=== PATIENT | male | born 1955 | race Caucasian/White ===

== ENCOUNTER 2021-07-15 09:51 | Emergency (ER) | payer MEDICARE, OTHER ==
[2021-07-15 10:41] LABS: PTT,PARTIAL THROMBOPLSTIN TIME 23.7 SEC (23.2-32.3)
[2021-07-15 10:56] LABS: CHLORIDE,CL 97 mEq/L (98-106); SODIUM,NA 136 mEq/L (136-145)
--- NOTE | 2021-07-15 11:27 | EDM.PDOC ---
<Franco Schumacher - Last Filed: 07/15/21 11:35> ED HPI GENERAL MEDICAL PROBLEM - General Chief Complaint: Upper Extremity Injury/Pain Stated Complaint: ARM PAIN DURING LEXISCAN Time Seen by Provider: 07/15/21 10:30 Source of Information: Reports: Patient History Limitations: Reports: No Limitations - History of Present Illness INITIAL COMMENTS - FREE TEXT/NARRATIVE: This is a 65-year-old male patient that presents to the emergency department after having a Lexiscan completed. Patient developed bilateral forearm pain during Lexiscan. Denies dizziness, chest pain, shortness of breath, diaphoresis, nausea, or vomiting. Patient is alert and oriented GCS is 15. Patient states during the scan after receiving the medication he began having a severe cramping type pain and to both forearms. Patient states that he able to move his extremities and the pain has been improving some since the scan. Patient stated that he was receiving the scan due to increased dyspnea at times. He reports that he is on a diuretic to assist with getting fluid out of his lower extremities. States that he was sent here to be evaluated due to the arm pain concerns. Onset: Today Duration: Minutes: (30 minutes) Location: Reports: Upper Extremity, Left, Upper Extremity, Right Quality: Reports: Other (cramping) Severity: Mild Improves with: Reports: None Worsens with: Reports: None Associated Symptoms: Reports: No Other Symptoms - Related Data Allergies Allergy/AdvReac Type Severity Reaction Status Date / Time No Known Allergies Allergy Verified 07/15/21 11:21 Home Meds: Home Meds ALPRAZolam [Xanax XR] 1 mg PO BID 09/27/20 [History] Fludrocortisone [Florinef] 0.1 mg PO DAILY 09/27/20 [History] Hydrocortisone [Cortef] 10 mg PO DAILY 09/27/20 [History] Metoprolol Succinate [Toprol XL 50mg] 50 mg PO BID 09/27/20 [History] Rosuvastatin Calcium 20 mg PO DAILY 09/27/20 [History] lisinopriL [Lisinopril] 20 mg PO DAILY 09/27/20 [History] Aspirin [Halfprin] 81 mg PO DAILY 07/15/21 [History] Cholecalciferol (Vitamin D3) [Vitamin D3] 2,000 unit PO DAILY 07/15/21 [History] Esomeprazole Magnesium [Nexium] 40 mg PO DAILY 07/15/21 [History] Furosemide 40 mg PO DAILY 07/15/21 [History] Magnesium Oxide [Magnesium] 500 mg PO DAILY 07/15/21 [History] Past Medical History Musculoskeletal History: Reports: Arthritis Endocrine/Metabolic History: Reports: Other (See Below) Other Endocrine/Metabolic History: adrenalectomy - Past Surgical History Musculoskeletal Surgical History: Reports: Arthroscopic Knee, Hip Replacement ED ROS GENERAL - Review of Systems Review Of Systems: See Below Constitutional: Reports: No Symptoms. Denies: Fever, Chills, Malaise, Weakness HEENT: Reports: No Symptoms Respiratory: Denies: Shortness of Breath, Wheezing, Pleuritic Chest Pain, Cough Cardiovascular: Reports: Dyspnea on Exertion. Denies: Chest Pain, Edema, Palpitations, Syncope GI/Abdominal: Denies: Abdominal Pain, Black Stool, Bloody Stool, Constipation, Diarrhea, Nausea, Vomiting : Reports: No Symptoms Musculoskeletal: Reports: Arm Pain ([place] forearm pain) Skin: Reports: No Symptoms Neurological: Denies: Confusion, Dizziness, Headache, Numbness, Paresthesia Psychiatric: Reports: No Symptoms. Denies: Anxiety, Confusion Hematologic/Lymphatic: Reports: No Symptoms Immunologic: Reports: No Symptoms ED EXAM, GENERAL - Physical Exam Exam: See Below Exam Limited By: No Limitations General Appearance: Alert, WD/WN, No Apparent Distress Eye Exam: Bilateral Eye: Normal Inspection Ears: Normal External Exam, Hearing Grossly Normal Nose: Normal Inspection, No Blood Throat/Mouth: Normal Lips, Normal Voice, No Airway Compromise Head: Atraumatic, Normocephalic Neck: Normal Inspection, Supple, Non-Tender Respiratory/Chest: No Respiratory Distress, Lungs Clear, Normal Breath Sounds. No: Crackles, Rales, Rhonchi, Wheezing Cardiovascular: Normal Peripheral Pulses, Regular Rate, Rhythm, No Gallop, No JVD, No Murmur, No Rub GI/Abdominal: Normal Bowel Sounds, Soft, Non-Tender, No Distention (Male) Exam: No Hernia, Deferred Rectal (Males) Exam: Deferred Back Exam: Normal Inspection Extremities: Arm Pain (bilteral forearms) Neurological: Alert, Oriented, CN II-XII Intact, Normal Cognition, No Motor/Sensory Deficits Psychiatric: Normal Affect, Normal Mood Skin Exam: Warm, Dry, Intact, Normal Color Lymphatic: No Adenopathy #1 Interpretation EKG Date: 07/15/21 Time: 10:32 Rhythm: NSR [place]: Normal P-Wave: Present QRS: Normal ST-T: Normal QT: Normal Comparison: NA - No Prior EKG EKG Interpretation Comments: NSR without acute ST changes Course - Re-Assessments/Exams Free Text/Narrative Re-Assessment/Exam: This is a 65-year-old male patient that presented to the emergency department with bilateral arm pain during a Lexiscan. Due to these findings they sent him to the ED and he was evaluated for cardiac symptoms. A CMP, CK, troponin, and magnesium level were drawn and completed with no acute findings. We also completed a 12-lead EKG which shows a normal sinus rhythm without acute ST changes. During the course of the ER visit patient's pain subsided to both arms. Plan will be to discharge home and he can follow-up with his primary care provider for his Lexiscan results. If he continues to have pain he may use Tylenol for discomfort. He can also call or return with any questions or concerns. Departure - Departure Time of Disposition: 11:28 Disposition: Home, Self-Care 01 Condition: Good Clinical Impression: Arm pain Qualifiers: Laterality: bilateral Qualified Code(s): M79.601 - Pain in right arm - Discharge Information *PRESCRIPTION DRUG MONITORING PROGRAM REVIEWED*: Not Applicable *COPY OF PRESCRIPTION DRUG MONITORING REPORT IN PATIENT EMELIA: Not Applicable Forms: ED Department Discharge Additional Instructions: 1. No emergent cardiac problem identified with today's labwork and EKG. 2. Follow-up with PCP for results of your Lexiscan. 3. Arm pain may be a result from the medication that you received during your procedure and should likely decrease with time. 4. May take Tylenol as needed for continued discomfort. 5. Call or return with any questions. <Leanna Eddy Luther - Last Filed: 07/16/21 13:06> ED HPI GENERAL MEDICAL PROBLEM Bilateral Lower Arm Pain Score (Numeric/FACES): 4 Course - Vital Signs Last Recorded V/S: Last Vital Signs Temp 98 F 07/15/21 11:30 Pulse 75 07/15/21 11:30 Resp 18 07/15/21 11:30 BP 175/92 H 07/15/21 11:30 Pulse Ox 96 07/15/21 11:30 - Orders/Labs/Meds Labs: Laboratory Tests 07/15/21 07/15/21 07/15/21 Range/Units 10:28 10:28 10:28 WBC 6.0 (4.0-11.0) 10^3/uL RBC 4.88 (4.50-6.00) x10^6/uL Hgb 12.7 L (14.0-18.0) g/dL Hct 40.4 L (42.0-52.0) % MCV 82.8 L (83.0-97.0) fL MCH 26.0 L (27.0-32.0) pg MCHC 31.4 L (32.0-36.0) g/dL RDW Coeff of Kelli 14.7 (11.0-15.0) % Plt Count 154 (150-400) 10^3/uL Immature Gran % (Auto) 0.2 (0.0-4.9) % Neut % (Auto) 67.7 (41-71) % Lymph % (Auto) 19.5 L (24-44) % [place] % (Auto) 9.0 (0-10) % Eos % (Auto) 2.8 (0-6) % Baso % (Auto) 0.8 (0-1) % Neut # (Auto) 4.06 (1.80-8.00) x10^3/uL Lymph # (Auto) 1.17 (0.60-5.00) 10^3/uL [place] # (Auto) 0.54 (0.00-1.50) 10^3/uL Eos # (Auto) 0.17 (0.00-1.50) 10^3/uL Baso # (Auto) 0.05 (0.00-0.50) 10^3/uL Immature Gran # (Auto) 0.01 (0.00-0.49) 10^3/uL PT 11.8 (9.7-12.3) SEC INR 1.09 (0.92-1.18) APTT 23.7 (23.2-32.3) SEC Sodium 136 (136-145) mEq/L Potassium 3.8 (3.5-5.0) mEq/L Chloride 97 L (98-106) mEq/L Carbon Dioxide 31 (21-32) mmol/L BUN 11 (7-18) mg/dL Creatinine 1.4 H (0.7-1.3) mg/dL Est Cr Clr Drug Dosing TNP Estimated GFR (MDRD) 51 L (>=60) mL/min Glucose 93 (75-99) mg/dL Calcium 8.8 (8.4-10.1) mg/dL Magnesium 2.0 (1.8-2.4) mg/dL Total Bilirubin 0.6 (0.0-1.0) mg/dL AST 23 (15-37) U/L ALT 29 (12-78) U/L Alkaline Phosphatase 80 (46-116) U/L Lactate Dehydrogenase 182 (100-190) U/L Creatine Kinase 86 (35-232) U/L Troponin I High Sens 21.9 (<=76) pg/mL Total Protein 6.7 (6.4-8.2) g/dL Albumin 3.5 (3.4-5.0) g/dL Lipase 66 L (73-393) U/L - Assessment/Plan Plan: I have personally examined pt and reviewed plan of care and am in agreement with it.
== END 2021-07-15 11:35 | disposition home or self-care (01) ==
LOC: CC.ED 09:51
DX: M79.601 Pain in right arm (principal); Z79.899 Other long term (current) drug therapy
CPT/HCPCS: 36415; 71046; 80053; 82550; 83615; 83690; 83735; 84484; 85025; 85610; 85730; 93005; 99284-25

== ENCOUNTER 2021-07-19 07:39 | Inpatient (IN) | payer MEDICARE, OTHER ==
[2021-07-19] MEDS ORDERED: Ketorolac 30 MG/ML SDV IVPUSH ONE (08:03)
[2021-07-19] MEDS ORDERED: Iopamidol 755 Mg/ML 100 ML Bottle IVPUSH ONE (09:29)
--- NOTE | 2021-07-19 12:06 | EDM.PDOC ---
ED HPI GENERAL MEDICAL PROBLEM - General Chief Complaint: General Stated Complaint: L Flank Pain Time Seen by Provider: 07/19/21 08:15 Source of Information: Reports: Patient History Limitations: Reports: No Limitations - History of Present Illness INITIAL COMMENTS - FREE TEXT/NARRATIVE: Kael is a 65 yo male who presents to the ED with c/o left sided mid back/flank pain. He reports he was coughing throughout the night and pain seemed to worsen. Does admit pain worsens with breathing. Is chronically short of breath, worse on exertion. Recently was seen for cough and SOB. At that time ProBNP was elevated to 2811. Patient was started on 40 mg lasix daily. He does report his swelling has greatly improved and he feels he has been breathing easier up until the last few days. Reports the last few days he has been coughing more and again feels short of breath. Denies any fever, chills, N/V/D, urinary symptoms. He did just have normal lexiscan. Echo is pending at this time. Onset: Today Duration: Constant Location: Reports: Back (left mid back) Quality: Reports: Ache, Sharp Worsens with: Reports: Breathing, Movement Associated Symptoms: Reports: Cough, Shortness of Breath. Denies: Confusion, Chest Pain, cough w sputum, Diaphoresis, Fever/Chills, Headaches, Loss of Appetite, Malaise, Nausea/Vomiting, Rash, Seizure, Syncope, Weakness - Related Data Allergies Allergy/AdvReac Type Severity Reaction Status Date / Time No Known Allergies Allergy Verified 07/19/21 08:11 Home Meds: Home Meds ALPRAZolam [Xanax XR] 1 mg PO BID 09/27/20 [History] Fludrocortisone [Florinef] 0.1 mg PO DAILY 09/27/20 [History] Hydrocortisone [Cortef] 10 mg PO DAILY 09/27/20 [History] Metoprolol Succinate [Toprol XL 50mg] 50 mg PO BID 09/27/20 [History] Rosuvastatin Calcium 20 mg PO DAILY 09/27/20 [History] lisinopriL [Lisinopril] 20 mg PO DAILY 09/27/20 [History] Aspirin [Halfprin] 81 mg PO DAILY 07/15/21 [History] Cholecalciferol (Vitamin D3) [Vitamin D3] 2,000 unit PO DAILY 07/15/21 [History] Esomeprazole Magnesium [Nexium] 40 mg PO DAILY 07/15/21 [History] Furosemide 40 mg PO DAILY 07/15/21 [History] Magnesium Oxide [Magnesium] 500 mg PO DAILY 07/15/21 [History] Past Medical History Cardiovascular History: Reports: Heart Failure, Hypertension, SOB on Exertion Musculoskeletal History: Reports: Arthritis Endocrine/Metabolic History: Reports: Other (See Below) Other Endocrine/Metabolic History: adrenalectomy - Past Surgical History GI Surgical History: Reports: Other (See Below) Other GI Surgeries/Procedures: adrenal gland removal Musculoskeletal Surgical History: Reports: Arthroscopic Knee, Hip Replacement Social & Family History - Family History Family Medical History: No Pertinent Family History - Tobacco Use Tobacco Use Status *Q: Never Tobacco User Second Hand Smoke Exposure: No - Caffeine Use Caffeine Use: Reports: None - Recreational Drug Use Recreational Drug Use: No ED ROS GENERAL - Review of Systems Review Of Systems: Comprehensive ROS is negative, except as noted in HPI. ED EXAM, GENERAL - Physical Exam Exam: See Below Exam Limited By: No Limitations General Appearance: Alert, WD/WN, No Apparent Distress Eye Exam: Bilateral Eye: EOMI, Normal Fundi, Normal Inspection, PERRL Nose: Normal Inspection, Normal Mucosa, No Blood Throat/Mouth: Normal Inspection, Normal Lips, Normal Teeth, Normal Gums, Normal Oropharynx, Normal Voice, No Airway Compromise Head: Atraumatic, Normocephalic Neck: Normal Inspection, Supple, Non-Tender, Full Range of Motion Respiratory/Chest: No Respiratory Distress, No Accessory Muscle Use, Decreased Breath Sounds, Rhonchi (LLL) Cardiovascular: Normal Peripheral Pulses, Regular Rate, Rhythm, No Edema, No Gallop, No JVD, No Murmur, No Rub GI/Abdominal: Normal Bowel Sounds, Soft, Non-Tender, No Organomegaly, No Distention, No Abnormal Bruit, No Mass Back Exam: Other (tenderness to left flank area) Extremities: Normal Capillary Refill, Pedal Edema (1+) Neurological: Alert, Oriented, CN II-XII Intact, Normal Cognition, Normal Gait, Normal Reflexes, No Motor/Sensory Deficits Psychiatric: Normal Affect, Normal Mood Skin Exam: Warm, Dry, Intact, Normal Color, No Rash Lymphatic: No Adenopathy Course - Vital Signs Last Recorded V/S: Last Vital Signs Temp 96.9 F 07/19/21 12:19 Pulse 75 07/19/21 12:19 Resp 20 07/19/21 12:19 BP 137/66 07/19/21 12:19 Pulse Ox 94 L 07/19/21 12:19 - Orders/Labs/Meds Orders: Active Orders 24 hr Category Date Time Status CTA Chest W WO Contrast [Ang Chest] [CT] Stat Exams 07/19/21 09:22 Taken Chest 1V Frontal [CR] Stat Exams 07/19/21 08:03 Taken Medication Orders Acetaminophen (Acetaminophen 325 Mg Tab) 650 mg PO Q4H PRN PRN Reason: Pain (Mild 1-3)/fever Hydrocodone Bitart/Acetaminophen (Acetaminophen/Hydrocodone 325-5 Mg Tab) 1 tab PO Q4H PRN PRN Reason: Pain (moderate 4-6) Albuterol/Ipratropium (Albuterol/Ipratropium 3.0-0.5 Mg/3 Ml Neb Soln) 3 ml NEB QID [facility] Last Admin: 07/19/21 16:09 Dose: 3 ml Documented by: ALANNA Alprazolam (Alprazolam 0.25 Mg Tab) 1 mg PO TID PRN PRN Reason: Anxiety Aspirin (Aspirin 81 Mg Tab.Ec) 81 mg PO DAILY [facility] Atorvastatin Calcium (Atorvastatin 20 Mg Tab) 40 mg PO BEDTIME [facility] Ceftriaxone Sodium (Ceftriaxone 1 Gm Vial) 1 gm IVPUSH Q24H [facility] Last Admin: 07/19/21 16:09 Dose: 1 gm Documented by: ALANNA Cholecalciferol (Cholecalciferol (Vitamin D3) 25 Mcg Tab) 50 mcg PO DAILY [facility] Docusate Sodium (Docusate Sodium 100 Mg Cap) 100 mg PO BID PRN PRN Reason: Constipation Enoxaparin Sodium (Enoxaparin 40 Mg/0.4 Ml Syringe) 40 mg SUBCUT Q24H [facility] Fludrocortisone Acetate (Fludrocortisone 0.1 Mg Tab) 0.1 mg PO DAILY [facility] Furosemide (Furosemide 40 Mg Tab) 40 mg PO DAILY [facility] Hydrocortisone (Hydrocortisone 20 Mg Tab) 10 mg PO DAILY [facility] Azithromycin 500 mg/ Sodium (Chloride) 250 mls @ 250 mls/hr IV Q24H [facility] Last Admin: 07/19/21 16:09 Dose: 250 mls/hr Documented by: ALANNA Lisinopril (Lisinopril 20 Mg Tab) 20 mg PO DAILY [facility] Magnesium Oxide (Magnesium Oxide 250 Mg Tab) 500 mg PO DAILY [facility] Methylprednisolone Sodium Succinate (Methylprednisolone Sodium Succinate 125 Mg/2 Ml Sdv) 62.5 mg IVPUSH BID [facility] Metoprolol Succinate (Metoprolol Succinate 100 Mg Tab.Er) 50 mg PO BID [facility] Morphine Sulfate (Morphine 2 Mg/Ml Syringe) 2 mg IVPUSH Q4H PRN PRN Reason: Pain (severe 7-10) Pantoprazole Sodium (Pantoprazole 40 Mg Tab.Cr) 40 mg PO ACBREAKFAST [facility] Polyethylene Glycol (Polyethylene Glycol 3350 Powder 17 Gm Packet) 17 gm PO DAILY PRN PRN Reason: Constipation Sodium Chloride (Sodium Chloride 0.9% 10 Ml Syringe) 10 ml FLUSH ASDIRECTED PRN PRN Reason: Keep Vein Open Temazepam (Temazepam 15 Mg Cap) 15 mg PO BEDTIME PRN PRN Reason: Sleep Labs: Laboratory Tests 07/19/21 07/19/21 07/19/21 Range/Units 08:04 08:15 08:15 WBC 12.1 H (4.0-11.0) 10^3/uL RBC 4.41 L (4.50-6.00) x10^6/uL Hgb 11.5 L (14.0-18.0) g/dL Hct 36.3 L (42.0-52.0) % MCV 82.3 L (83.0-97.0) fL MCH 26.1 L (27.0-32.0) pg MCHC 31.7 L (32.0-36.0) g/dL RDW Coeff of Kelli 14.6 (11.0-15.0) % Plt Count 168 (150-400) 10^3/uL Immature Gran % (Auto) 1.1 (0.0-4.9) % Neut % (Auto) 84.0 H (41-71) % Lymph % (Auto) 7.8 L (24-44) % [place] % (Auto) 5.3 (0-10) % Eos % (Auto) 1.3 (0-6) % Baso % (Auto) 0.5 (0-1) % Neut # (Auto) 10.19 H (1.80-8.00) x10^3/uL Lymph # (Auto) 0.95 (0.60-5.00) 10^3/uL [place] # (Auto) 0.64 (0.00-1.50) 10^3/uL Eos # (Auto) 0.16 (0.00-1.50) 10^3/uL Baso # (Auto) 0.06 (0.00-0.50) 10^3/uL Immature Gran # (Auto) 0.13 (0.00-0.49) 10^3/uL D-Dimer, Quantitative (0.00-0.50) Sodium 132 L (136-145) mEq/L Potassium 3.4 L (3.5-5.0) mEq/L Chloride 89 L (98-106) mEq/L Carbon Dioxide 34 H (21-32) mmol/L BUN 17 D (7-18) mg/dL Creatinine 1.6 H (0.7-1.3) mg/dL Est Cr Clr Drug Dosing 40.43 mL/min Estimated GFR (MDRD) 43 L (>=60) mL/min Glucose 97 (75-99) mg/dL Calcium 8.2 L (8.4-10.1) mg/dL Magnesium 1.8 (1.8-2.4) mg/dL Total Bilirubin 0.9 (0.0-1.0) mg/dL AST 21 (15-37) U/L ALT 22 (12-78) U/L Alkaline Phosphatase 69 (46-116) U/L Troponin I High Sens 33.5 (<=76) pg/mL NT-Pro-B Natriuret Pep 1144 H (0-1000) pg/mL Total Protein 6.4 (6.4-8.2) g/dL Albumin 3.0 L (3.4-5.0) g/dL Urine Color Light yellow (YELLOW) Urine Appearance Clear (CLEAR) Urine pH 7.0 (4.5-8.0) Ur Specific [place] 1.015 (1.003-1.020) Urine Protein Negative (NEGATIVE) mg/dL Urine Glucose (UA) Negative (NEGATIVE) mg/dL Urine Ketones Negative (NEGATIVE) mg/dL Urine Occult Blood Negative (NEGATIVE) Urine Nitrite Negative (NEGATIVE) Urine Bilirubin Negative (NEGATIVE) Urine Urobilinogen 0.2 (0.2-1.0) EU/dL Ur Leukocyte Esterase Negative (NEGATIVE) SARS CoV-2 RNA Rapid ROBERT (NEGATIVE) 07/19/21 07/19/21 Range/Units 08:35 09:05 WBC (4.0-11.0) 10^3/uL RBC (4.50-6.00) x10^6/uL Hgb (14.0-18.0) g/dL Hct (42.0-52.0) % MCV (83.0-97.0) fL MCH (27.0-32.0) pg MCHC (32.0-36.0) g/dL RDW Coeff of Kelli (11.0-15.0) % Plt Count (150-400) 10^3/uL Immature Gran % (Auto) (0.0-4.9) % Neut % (Auto) (41-71) % Lymph % (Auto) (24-44) % [place] % (Auto) (0-10) % Eos % (Auto) (0-6) % Baso % (Auto) (0-1) % Neut # (Auto) (1.80-8.00) x10^3/uL Lymph # (Auto) (0.60-5.00) 10^3/uL [place] # (Auto) (0.00-1.50) 10^3/uL Eos # (Auto) (0.00-1.50) 10^3/uL Baso # (Auto) (0.00-0.50) 10^3/uL Immature Gran # (Auto) (0.00-0.49) 10^3/uL D-Dimer, Quantitative 2.34 H (0.00-0.50) Sodium (136-145) mEq/L Potassium (3.5-5.0) mEq/L Chloride (98-106) mEq/L Carbon Dioxide (21-32) mmol/L BUN (7-18) mg/dL Creatinine (0.7-1.3) mg/dL Est Cr Clr Drug Dosing mL/min Estimated GFR (MDRD) (>=60) mL/min Glucose (75-99) mg/dL Calcium (8.4-10.1) mg/dL Magnesium (1.8-2.4) mg/dL Total Bilirubin (0.0-1.0) mg/dL AST (15-37) U/L ALT (12-78) U/L Alkaline Phosphatase (46-116) U/L Troponin I High Sens (<=76) pg/mL NT-Pro-B Natriuret Pep (0-1000) pg/mL Total Protein (6.4-8.2) g/dL Albumin (3.4-5.0) g/dL Urine Color (YELLOW) Urine Appearance (CLEAR) Urine pH (4.5-8.0) Ur Specific [place] (1.003-1.020) Urine Protein (NEGATIVE) mg/dL Urine Glucose (UA) (NEGATIVE) mg/dL Urine Ketones (NEGATIVE) mg/dL Urine Occult Blood (NEGATIVE) Urine Nitrite (NEGATIVE) Urine Bilirubin (NEGATIVE) Urine Urobilinogen (0.2-1.0) EU/dL Ur Leukocyte Esterase (NEGATIVE) SARS CoV-2 RNA Rapid ROBERT Negative (NEGATIVE) Meds: Medications Generic Name Dose Route Start Last Admin Trade Name Freq PRN Reason Stop Dose Admin Acetaminophen 650 mg 07/19/21 12:19 Acetaminophen 325 Mg Tab PO Q4H PRN Pain (Mild 1-3)/fever Hydrocodone Bitart/Acetaminophen 1 tab 07/19/21 12:19 Acetaminophen/Hydrocodone 325-5 Mg Tab PO Q4H PRN Pain (moderate 4-6) Albuterol/Ipratropium 3 ml 07/19/21 16:00 07/19/21 16:09 Albuterol/Ipratropium 3.0-0.5 Mg/3 Ml Neb Soln NEB 3 ml QID [facility] Administration Alprazolam 1 mg 07/19/21 20:00 Alprazolam 0.25 Mg Tab PO TID PRN Anxiety Aspirin 81 mg 07/20/21 08:00 Aspirin 81 Mg Tab.Ec PO DAILY [facility] Atorvastatin Calcium 40 mg 07/20/21 20:00 Atorvastatin 20 Mg Tab PO BEDTIME [facility] Ceftriaxone Sodium 1 gm 07/19/21 16:00 07/19/21 16:09 Ceftriaxone 1 Gm Vial IVPUSH 1 gm Q24H [facility] Administration Cholecalciferol 50 mcg 07/20/21 08:00 Cholecalciferol (Vitamin D3) 25 Mcg Tab PO DAILY [facility] Docusate Sodium 100 mg 07/19/21 12:19 Docusate Sodium 100 Mg Cap PO BID PRN Constipation Enoxaparin Sodium 40 mg 07/20/21 08:00 Enoxaparin 40 Mg/0.4 Ml Syringe SUBCUT Q24H [facility] Fludrocortisone Acetate 0.1 mg 07/20/21 08:00 Fludrocortisone 0.1 Mg Tab PO DAILY [facility] Furosemide 40 mg 07/20/21 08:00 Furosemide 40 Mg Tab PO DAILY [facility] Hydrocortisone 10 mg 07/20/21 08:00 Hydrocortisone 20 Mg Tab PO DAILY [facility] Azithromycin 500 mg/ Sodium 250 mls @ 250 mls/hr 07/19/21 16:00 07/19/21 16:09 Chloride IV 250 mls/hr Q24H [facility] Administration Lisinopril 20 mg 07/20/21 08:00 Lisinopril 20 Mg Tab PO DAILY [facility] Magnesium Oxide 500 mg 07/20/21 08:00 Magnesium Oxide 250 Mg Tab PO DAILY [facility] Methylprednisolone Sodium Succinate 62.5 mg 07/19/21 20:00 Methylprednisolone Sodium Succinate 125 Mg/2 Ml Sdv IVPUSH BID [facility] Metoprolol Succinate 50 mg 07/19/21 20:00 Metoprolol Succinate 100 Mg Tab.Er PO BID [facility] Morphine Sulfate 2 mg 07/19/21 12:19 Morphine 2 Mg/Ml Syringe IVPUSH Q4H PRN Pain (severe 7-10) Pantoprazole Sodium 40 mg 07/20/21 07:00 Pantoprazole 40 Mg Tab.Cr PO ACBREAKFAST [facility] Polyethylene Glycol 17 gm 07/19/21 12:19 Polyethylene Glycol 3350 Powder 17 Gm Packet PO DAILY PRN Constipation Sodium Chloride 10 ml 07/19/21 12:19 Sodium Chloride 0.9% 10 Ml Syringe FLUSH ASDIRECTED PRN Keep Vein Open Temazepam 15 mg 07/19/21 12:19 Temazepam 15 Mg Cap PO BEDTIME PRN Sleep Discontinued Medications Generic Name Dose Route Start Last Admin Trade Name Freq PRN Reason Stop Dose Admin Iopamidol 100 ml 07/19/21 09:29 07/19/21 10:08 Iopamidol 755 Mg/Ml 100 Ml Bottle IVPUSH 07/19/21 09:30 100 ml ONETIME ONE Administration Ketorolac Tromethamine 30 mg 07/19/21 08:03 07/19/21 08:09 Ketorolac 30 Mg/Ml Sdv IVPUSH 07/19/21 08:04 30 mg ONETIME ONE Administration Oxycodone/Acetaminophen Confirm 07/19/21 12:52 07/19/21 13:28 Acetaminophen/Oxycodone 325-5 Mg Tab Administered 07/19/21 12:53 1 tab Dose Administration 1 tab .ROUTE .[facility] ONE - Re-Assessments/Exams Free Text/Narrative Re-Assessment/Exam: 07/19/21 12:00 Discussed labs, CXR, EKG and Chest CTA results with patient and . Negative for PE. Does have YEE and LLL pneumonia as well as multiple rib fractures in varying degrees of healing. Recommend admit. Patient agreeable. Departure - Departure Time of Disposition: 12:02 Disposition: Admitted As Inpatient 64 Condition: Fair Clinical Impression: Dade disease Left lower lobe pneumonia Qualifiers: Pneumonia type: due to other aerobic Gram-negative bacteria Qualified Code(s): J15.6 - Pneumonia due to other Gram-negative bacteria Rib fractures Qualifiers: Encounter type: initial encounter Fracture type: closed Laterality: bilateral Qualified Code(s): S22.43XA - Multiple fractures of ribs, bilateral, initial encounter for closed fracture Congestive heart failure Qualifiers: Heart failure type: unspecified Heart failure chronicity: acute on chronic Qualified Code(s): I50.9 - Heart failure, unspecified - Discharge Information *PRESCRIPTION DRUG MONITORING PROGRAM REVIEWED*: Not Applicable *COPY OF PRESCRIPTION DRUG MONITORING REPORT IN PATIENT EMELIA: Not Applicable Sepsis Event Note (ED) - Evaluation Sepsis Screening Result: No Definite Risk - Focused Exam Vital Signs: Vital Signs Temp Pulse Resp BP Pulse Ox 07/19/21 09:47 78 18 131/75 95 07/19/21 07:51 97.8 F 80 18 137/75 94 L - Problem List & Annotations (1) Left lower lobe pneumonia SNOMED Code(s): 761228697 Code(s): J18.9 - PNEUMONIA, UNSPECIFIED ORGANISM Status: Acute Current Visit: Yes Qualifiers: Pneumonia type: due to other aerobic Gram-negative bacteria Qualified Code(s): J15.6 - Pneumonia due to other Gram-negative bacteria (2) Congestive heart failure SNOMED Code(s): 39352441 Code(s): I50.9 - HEART FAILURE, UNSPECIFIED Status: Acute Current Visit: Yes Qualifiers: Heart failure type: unspecified Heart failure chronicity: acute on chronic Qualified Code(s): I50.9 - Heart failure, unspecified (3) Dade disease SNOMED Code(s): 165787656 Code(s): E27.1 - PRIMARY ADRENOCORTICAL INSUFFICIENCY Status: Acute Current Visit: Yes (4) Rib fractures SNOMED Code(s): 0877225 Code(s): S22.49XA - MULTIPLE FRACTURES OF RIBS, UNSP SIDE, INIT FOR CLOS FX Status: Acute Current Visit: Yes Qualifiers: Encounter type: initial encounter Fracture type: closed Laterality: bilateral Qualified Code(s): S22.43XA - Multiple fractures of ribs, bilateral, initial encounter for closed fracture (5) COPD (chronic obstructive pulmonary disease) SNOMED Code(s): 69061843 Code(s): J44.9 - CHRONIC OBSTRUCTIVE PULMONARY DISEASE, UNSPECIFIED Status: Acute Current Visit: Yes - Problem List Review Problem List Initiated/Reviewed/Updated: Yes - My Orders Last 24 Hours: My Active Orders 07/19/21 08:03 Chest 1V Frontal [CR] Stat 07/19/21 09:22 CTA Chest W WO Contrast [Ang Chest] [CT] Stat - Assessment/Plan Admission H&P: Please use this note as an admission H&P Last 24 Hours: My Active Orders 07/19/21 08:03 Chest 1V Frontal [CR] Stat 07/19/21 09:22 CTA Chest W WO Contrast [Ang Chest] [CT] Stat Assessment:: YEE and LLL Pneumonia CHF, 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 D Dimer elevated to 2.34. Opted to proceed with Chest CTA which does reveal YEE and LLL infiltrate as well as multiple bilateral rib fractures. Acute fractures noted to left 11th and 12th ribs, as likely source of patients pain. Pain meds ordered to be used as needed. ProBNP remains elevated at 1144, but this is much improved from last week. Continue lasix. Echo pending at this time. Na is low at 132. Will admit to acute with telemetry. Initiate IV antibiotics and nebs. Start stress dosed steroids. Repeat labs in am.
[2021-07-19] MEDS ORDERED: Polyethylene Glycol 3350 Powder 17 GM Packet PO PRN (12:19)
[2021-07-19] MEDS ORDERED: Acetaminophen 325 MG Tab PO PRN (12:19)
[2021-07-19] MEDS ORDERED: Temazepam 15 MG Cap PO PRN (12:19)
[2021-07-19] MEDS ORDERED: Morphine 2 MG/ML SYRINGE IVPUSH PRN (12:19)
[2021-07-19] MEDS ORDERED: Docusate Sodium 100 MG Cap PO PRN (12:19)
[2021-07-19] MEDS ORDERED: Sodium Chloride 0.9% 10 ML Syringe FLUSH PRN (12:19)
[2021-07-19] MEDS ORDERED: Acetaminophen/oxyCODONE 325-5 MG Tab ONE (12:52)
[2021-07-19] MEDS: Albuterol/Ipratropium 3.0-0.5 MG/3 ML Neb Soln NEB SCH ×2 (16:09→19:34)
[2021-07-19] MEDS: cefTRIAXone 1 GM Vial IVPUSH SCH (16:09)
[2021-07-19] MEDS: Azithromycin 500 MG in Sodium Chloride 0.9% 250 ML IV SCH (16:09)
[2021-07-19] MEDS: methylPREDNISolone Sodium Succinate 125 MG/2 ML SDV IVPUSH SCH (19:34)
[2021-07-19] MEDS: Metoprolol Succinate 100 MG Tab.ER PO SCH (19:39)
[2021-07-19] MEDS: Acetaminophen/HYDROcodone 325-5 MG Tab PO PRN (19:57)
[2021-07-19] MEDS ORDERED: ALPRAZolam 0.25 MG Tab PO PRN (20:00)
[2021-07-20] MEDS: Acetaminophen/HYDROcodone 325-5 MG Tab PO PRN ×3 (02:01→20:43)
[2021-07-20] MEDS: Pantoprazole 40 MG Tab.CR PO SCH (06:50)
[2021-07-20] MEDS: methylPREDNISolone Sodium Succinate 125 MG/2 ML SDV IVPUSH SCH ×2 (07:49→19:35)
[2021-07-20] MEDS: Albuterol/Ipratropium 3.0-0.5 MG/3 ML Neb Soln NEB SCH ×4 (07:49→19:35)
[2021-07-20] MEDS: Enoxaparin 40 MG/0.4 ML Syringe SUBCUT SCH (07:50)
[2021-07-20] MEDS: Hydrocortisone 20 MG Tab PO SCH (07:50)
[2021-07-20] MEDS: Fludrocortisone 0.1 MG Tab PO SCH (07:51)
[2021-07-20] MEDS: Aspirin 81 MG Tab.EC PO SCH (07:51)
[2021-07-20] MEDS: Metoprolol Succinate 100 MG Tab.ER PO SCH ×2 (07:52→19:36)
[2021-07-20] MEDS: Lisinopril 20 MG Tab PO SCH (07:56)
[2021-07-20] MEDS: Cholecalciferol (Vitamin D3) 25 MCG Tab PO SCH (07:56)
[2021-07-20] MEDS: Furosemide 40 MG Tab PO SCH (07:56)
[2021-07-20] MEDS: Isosorbide Mononitrate 30 MG Tab.ER PO SCH (10:38)
--- NOTE | 2021-07-20 12:03 | PN ---
DATE: 07/20/2021 S: Mr. Boogie is a patient of Barbara whom last week I saw I believe for a Lexiscan that was apparently negative. Nevertheless, he has had some worsening shortness of breath, saw Barbara, was put on Lasix for an elevated proBNP and he is feeling improved but he has been worsening with increased cough and shortness of breath. Ultimately, a CT was done which showed a left lower lobe pneumonia with some associated overlying rib fractures and the patient has no history of trauma and they felt this was related to his cough. He feels better, but he continues to have complaints of pain with any deep inspiration. O: On physical exam, he appears in no obvious distress, speaks in full sentences, is not wearing O2, his sats are 91% on room air. NECK: His neck veins do not appear distended. LUNGS: He has diminished breath sounds in the left lung redding, more so in the base. CARDIAC: Tones appear regular. ABDOMEN: Obese and soft. He has no peripheral edema. ASSESSMENT: 1. LEFT LOWER LOBE PNEUMONIA. 2. RIB FRACTURES. 3. HISTORY OF CONGESTIVE HEART FAILURE, STABLE. 4. ADRENAL INSUFFICIENCY SECONDARY TO ADRENAL GLAND REMOVAL. 5. HISTORY OF CHRONIC OBSTRUCTIVE PULMONARY DISEASE. P: Patient is on IV antibiotics, IV steroids, and clinically he is doing well. His blood pressure is elevated today, quite high. He does take lisinopril and Lasix. We will keep a close eye on this as up until this morning, his blood pressures were quite good, right now he is 166/79. Given his history of CHF and COPD, at this time, we will put him on a dose of Imdur and see how he does. KRISTINE/LISA /[id number]
[2021-07-20] MEDS: Azithromycin 500 MG in Sodium Chloride 0.9% 250 ML IV SCH (16:33)
[2021-07-20] MEDS: cefTRIAXone 1 GM Vial IVPUSH SCH (16:33)
[2021-07-20] MEDS ORDERED: atorvaSTATin 20 MG Tab PO SCH (20:00)
[2021-07-21] MEDS: Pantoprazole 40 MG Tab.CR PO SCH (06:14)
[2021-07-21] MEDS: Albuterol/Ipratropium 3.0-0.5 MG/3 ML Neb Soln NEB SCH ×2 (07:49→11:31)
[2021-07-21] MEDS: Enoxaparin 40 MG/0.4 ML Syringe SUBCUT SCH (07:50)
[2021-07-21] MEDS: Hydrocortisone 20 MG Tab PO SCH (07:51)
[2021-07-21] MEDS: Metoprolol Succinate 100 MG Tab.ER PO SCH (07:51)
[2021-07-21] MEDS: Furosemide 40 MG Tab PO SCH (07:52)
[2021-07-21] MEDS: Cholecalciferol (Vitamin D3) 25 MCG Tab PO SCH (07:52)
[2021-07-21] MEDS: Isosorbide Mononitrate 30 MG Tab.ER PO SCH (07:53)
[2021-07-21] MEDS: Lisinopril 20 MG Tab PO SCH (07:53)
[2021-07-21] MEDS: Fludrocortisone 0.1 MG Tab PO SCH (07:53)
[2021-07-21] MEDS: Aspirin 81 MG Tab.EC PO SCH (07:54)
[2021-07-21] MEDS: methylPREDNISolone Sodium Succinate 125 MG/2 ML SDV IVPUSH SCH (07:55)
--- NOTE | 2021-07-21 08:43 | PCM.PN ---
- General Info Date of Service: 07/21/21 Admission Dx/Problem (Free Text): LLL Pneumonia Overlying rib fractures History of COPD HTN Subjective Update: Patient sitting up at edge of bed after neb treatment. States is feeling better. Admits to less cough. Productive this am. Is still dyspneic with exertion. Is using the incentive spirometer multiple times per day, up to 1999. Afebrile. Pain is less in his left chest wall. Oxygen sats 97% on room air. Blood pressure still high this am 171/83. Appetite is good. Functional Status: Reports: Pain Controlled, Tolerating Diet, Ambulating - Review of Systems General: Reports: Weakness, Fatigue, Malaise. Denies: Fever, Chills HEENT: Denies: Sinus Congestion, Sore Throat, Rhinitis Pulmonary: Reports: Shortness of Breath, Pleuritic Chest Pain, Cough Cardiovascular: Reports: Edema. Denies: Chest Pain Gastrointestinal: Denies: Abdominal Pain, Diarrhea, Nausea, Vomiting Genitourinary: Reports: No Symptoms Musculoskeletal: Reports: Back Pain Skin: Reports: No Symptoms Neurological: Reports: No Symptoms - Patient Data Vitals - Most Recent: Last Vital Signs Temp 98 F 07/21/21 07:46 Pulse 87 07/21/21 07:51 Resp 18 07/21/21 07:46 BP 171/83 H 07/21/21 07:53 Pulse Ox 97 07/21/21 07:46 Weight - Most Recent: 216 lb Lab Results Last 24 Hours: Laboratory Results - last 24 hr 07/21/21 07/21/21 Range/Units 08:04 08:04 WBC 15.3 H (4.0-11.0) 10^3/uL RBC 4.41 L (4.50-6.00) x10^6/uL Hgb 11.5 L (14.0-18.0) g/dL Hct 36.7 L (42.0-52.0) % MCV 83.2 (83.0-97.0) fL MCH 26.1 L (27.0-32.0) pg MCHC 31.3 L (32.0-36.0) g/dL RDW Coeff of Kelli 14.6 (11.0-15.0) % Plt Count 256 (150-400) 10^3/uL Add Manual Diff Yes Sodium 135 L (136-145) mEq/L Potassium 4.6 (3.5-5.0) mEq/L Chloride 95 L (98-106) mEq/L Carbon Dioxide 34 H (21-32) mmol/L BUN 16 (7-18) mg/dL Creatinine 1.5 H (0.7-1.3) mg/dL Est Cr Clr Drug Dosing 43.12 mL/min Estimated GFR (MDRD) 47 L (>=60) mL/min Glucose 138 H (75-99) mg/dL Calcium 9.3 (8.4-10.1) mg/dL C-Reactive Protein 8.8 H (0.2-0.8) mg/dL Med Orders - Current: Current Medications Acetaminophen (Acetaminophen 325 Mg Tab) 650 mg PO Q4H PRN PRN Reason: Pain (Mild 1-3)/fever Hydrocodone Bitart/Acetaminophen (Acetaminophen/Hydrocodone 325-5 Mg Tab) 1 tab PO Q4H PRN PRN Reason: Pain (moderate 4-6) Last Admin: 07/20/21 20:43 Dose: 1 tab Documented by: Albuterol/Ipratropium (Albuterol/Ipratropium 3.0-0.5 Mg/3 Ml Neb Soln) 3 ml NEB QID [facility] Last Admin: 07/21/21 07:49 Dose: 3 ml Documented by: Alprazolam (Alprazolam 0.25 Mg Tab) 1 mg PO TID PRN PRN Reason: Anxiety Aspirin (Aspirin 81 Mg Tab.Ec) 81 mg PO DAILY [facility] Last Admin: 07/21/21 07:54 Dose: 81 mg Documented by: Atorvastatin Calcium (Atorvastatin 20 Mg Tab) 40 mg PO BEDTIME [facility] Last Admin: 07/20/21 19:35 Dose: 40 mg Documented by: Ceftriaxone Sodium (Ceftriaxone 1 Gm Vial) 1 gm IVPUSH Q24H [facility] Last Admin: 07/20/21 16:33 Dose: 1 gm Documented by: Cholecalciferol (Cholecalciferol (Vitamin D3) 25 Mcg Tab) 50 mcg PO DAILY [facility] Last Admin: 07/21/21 07:52 Dose: 50 mcg Documented by: Docusate Sodium (Docusate Sodium 100 Mg Cap) 100 mg PO BID PRN PRN Reason: Constipation Enoxaparin Sodium (Enoxaparin 40 Mg/0.4 Ml Syringe) 40 mg SUBCUT Q24H [facility] Last Admin: 07/21/21 07:50 Dose: 40 mg Documented by: Fludrocortisone Acetate (Fludrocortisone 0.1 Mg Tab) 0.1 mg PO DAILY [facility] Last Admin: 07/21/21 07:53 Dose: 0.1 mg Documented by: Furosemide (Furosemide 40 Mg Tab) 40 mg PO DAILY [facility] Last Admin: 07/21/21 07:52 Dose: 40 mg Documented by: Hydrocortisone (Hydrocortisone 20 Mg Tab) 10 mg PO DAILY [facility] Last Admin: 07/21/21 07:51 Dose: 10 mg Documented by: Azithromycin 500 mg/ Sodium (Chloride) 250 mls @ 250 mls/hr IV Q24H [facility] Last Admin: 07/20/21 16:33 Dose: 250 mls/hr Documented by: Isosorbide Mononitrate (Isosorbide Mononitrate 30 Mg Tab.Er) 30 mg PO DAILY [facility] Last Admin: 07/21/21 07:53 Dose: 30 mg Documented by: Lisinopril (Lisinopril 20 Mg Tab) 20 mg PO DAILY [facility] Last Admin: 07/21/21 07:53 Dose: 20 mg Documented by: Magnesium Oxide (Magnesium Oxide 250 Mg Tab) 500 mg PO DAILY [facility] Last Admin: 07/21/21 07:54 Dose: 500 mg Documented by: Methylprednisolone Sodium Succinate (Methylprednisolone Sodium Succinate 125 Mg/2 Ml Sdv) 62.5 mg IVPUSH BID [facility] Last Admin: 07/21/21 07:55 Dose: 62.5 mg Documented by: Metoprolol Succinate (Metoprolol Succinate 100 Mg Tab.Er) 50 mg PO BID [facility] Last Admin: 07/21/21 07:51 Dose: 50 mg Documented by: Morphine Sulfate (Morphine 2 Mg/Ml Syringe) 2 mg IVPUSH Q4H PRN PRN Reason: Pain (severe 7-10) Pantoprazole Sodium (Pantoprazole 40 Mg Tab.Cr) 40 mg PO ACBREAKFAST [facility] Last Admin: 07/21/21 06:14 Dose: 40 mg Documented by: Polyethylene Glycol (Polyethylene Glycol 3350 Powder 17 Gm Packet) 17 gm PO DAILY PRN PRN Reason: Constipation Sodium Chloride (Sodium Chloride 0.9% 10 Ml Syringe) 10 ml FLUSH ASDIRECTED PRN PRN Reason: Keep Vein Open Temazepam (Temazepam 15 Mg Cap) 15 mg PO BEDTIME PRN PRN Reason: Sleep Discontinued Medications Iopamidol (Iopamidol 755 Mg/Ml 100 Ml Bottle) 100 ml IVPUSH ONETIME ONE Stop: 07/19/21 09:30 Last Admin: 07/19/21 10:08 Dose: 100 ml Documented by: Ketorolac Tromethamine (Ketorolac 30 Mg/Ml Sdv) 30 mg IVPUSH ONETIME ONE Stop: 07/19/21 08:04 Last Admin: 07/19/21 08:09 Dose: 30 mg Documented by: Oxycodone/Acetaminophen (Acetaminophen/Oxycodone 325-5 Mg Tab) Confirm Administered Dose 1 tab .ROUTE .STK-MED ONE Stop: 07/19/21 12:53 Last Admin: 07/19/21 13:28 Dose: 1 tab Documented by: - Exam General: Alert, Oriented HEENT: Mucous Membr. Moist/[place] Neck: Supple Lungs: Decreased Breath Sounds Cardiovascular: Regular Rate, Regular Rhythm GI/Abdominal Exam: Normal Bowel Sounds, Soft, Non-Tender Extremities: Normal Inspection, Pedal Edema Skin: Warm, Dry Neurological: No New Focal Deficit - Patient Data Lab Results Last 24 hrs: Laboratory Results - last 24 hr 07/21/21 07/21/21 Range/Units 08:04 08:04 WBC 15.3 H (4.0-11.0) 10^3/uL RBC 4.41 L (4.50-6.00) x10^6/uL Hgb 11.5 L (14.0-18.0) g/dL Hct 36.7 L (42.0-52.0) % MCV 83.2 (83.0-97.0) fL MCH 26.1 L (27.0-32.0) pg MCHC 31.3 L (32.0-36.0) g/dL RDW Coeff of Kelli 14.6 (11.0-15.0) % Plt Count 256 (150-400) 10^3/uL Add Manual Diff Yes Sodium 135 L (136-145) mEq/L Potassium 4.6 (3.5-5.0) mEq/L Chloride 95 L (98-106) mEq/L Carbon Dioxide 34 H (21-32) mmol/L BUN 16 (7-18) mg/dL Creatinine 1.5 H (0.7-1.3) mg/dL Est Cr Clr Drug Dosing 43.12 mL/min Estimated GFR (MDRD) 47 L (>=60) mL/min Glucose 138 H (75-99) mg/dL Calcium 9.3 (8.4-10.1) mg/dL C-Reactive Protein 8.8 H (0.2-0.8) mg/dL Result Diagrams: 07/21/21 08:04 07/21/21 08:04 Sepsis Event Note - Evaluation Sepsis Screening Result: No Definite Risk - Focused Exam Vital Signs: Vital Signs Temp Pulse Pulse Resp BP BP Pulse Ox 07/21/21 07:53 171/83 H 07/21/21 07:51 87 171/83 H 07/21/21 07:46 98 F 87 18 171/83 H 97 07/21/21 04:00 98.2 F 76 20 159/77 H 94 L 07/21/21 00:00 98.5 F 71 20 166/85 H 92 L - Problem List & Annotations (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 - PRIMARY ADRENOCORTICAL INSUFFICIENCY Status: Chronic Priority: Medium Current Visit: Yes (2) COPD (chronic obstructive pulmonary disease) SNOMED Code(s): 54094229 Code(s): J44.9 - CHRONIC OBSTRUCTIVE PULMONARY DISEASE, UNSPECIFIED Status: Chronic Priority: Medium Current Visit: Yes (3) Congestive heart failure SNOMED Code(s): 39400388 Code(s): I50.9 - HEART FAILURE, UNSPECIFIED Status: Acute Priority: High Current Visit: Yes Qualifiers: Heart failure type: unspecified Heart failure chronicity: acute on chronic Qualified Code(s): I50.9 - Heart failure, unspecified (4) Left lower lobe pneumonia SNOMED Code(s): 462436571 Code(s): J18.9 - PNEUMONIA, UNSPECIFIED ORGANISM Status: Acute Priority: High Current Visit: Yes Qualifiers: Pneumonia type: due to other aerobic Gram-negative bacteria Qualified Code(s): J15.6 - Pneumonia due to other Gram-negative bacteria (5) Rib fractures SNOMED Code(s): 0356345 Code(s): S22.49XA - MULTIPLE FRACTURES OF RIBS, UNSP SIDE, INIT FOR CLOS FX Status: Acute Priority: High Current Visit: Yes Qualifiers: Encounter type: initial encounter Fracture type: closed Laterality: bilateral Qualified Code(s): S22.43XA - Multiple fractures of ribs, bilateral, initial encounter for closed fracture - Problem List Review Problem List Initiated/Reviewed/Updated: Yes - My Orders Last 24 Hours: My Active Orders 07/21/21 08:04 CBC WITH AUTO DIFF [HEME] Routine MANUAL DIFFERENTIAL QA/NC [HEME] Routine - Assessment Assessment:: LLL Pneumonia Rib fractures CHF COPD History of Schoolcraft's Disease - Plan Plan:: WBC remains elevated at 15.3. CRP is improved to 8.8 Electrolytes are normal. Creatinine 1.5. Blood pressure still elevated at 171/83. Was started on ImDur yesterday, continues to get Lasix for CHF/edema. States it is much improved. Will continue IV antibiotics. Incentive spirometry. Encouraged to ambulate in [place]. Possible discharge home tomorrow if tolerates activity.
[2021-07-21] MEDS ORDERED: cefTRIAXone 1 GM Vial IVPUSH SCH (12:00)
[2021-07-21] MEDS ORDERED: Azithromycin 500 MG in Sodium Chloride 0.9% 250 ML IV SCH (12:00)
== END 2021-07-21 14:12 | disposition home or self-care (01) | DRG 178 ==
LOC: CC.ED 07:39 → CC.MS 12:05 → UNDOADMIN 12:05 → CC.MS 12:09
PROVIDERS: ADMIT Nurse Practitioner Family; ATTEND Family Medicine
DX: J15.6 Pneumonia due to other Gram-negative bacteria (principal); S22.43XA Multiple fractures of ribs, bilateral, initial encounter for closed fracture; E27.1 Primary adrenocortical insufficiency; J44.0 Chronic obstructive pulmonary disease with (acute) lower respiratory infection; I50.9 Heart failure, unspecified; Z20.822 Contact with and (suspected) exposure to COVID-19; E89.6 Postprocedural adrenocortical (-medullary) hypofunction; X58.XXXA Exposure to other specified factors, initial encounter; Z79.899 Other long term (current) drug therapy; Z79.82 Long term (current) use of aspirin; I11.0 Hypertensive heart disease with heart failure; M19.90 Unspecified osteoarthritis, unspecified site; Z96.649 Presence of unspecified artificial hip joint
CPT/HCPCS: 36415; 71045; 71275; 80053; 81003; 83735; 83880; 84484; 85025; 85379; 93005; 96374; 99285; J1885; Q9967; U0002; 80048; 86140; 90662; 94640; A9270-GY; G0008; J0456; J0696; J1650; J2930; J7050; J7620-GY